=== PATIENT | female | born 1945 | race Caucasian/White ===

== ENCOUNTER 2018-04-16 09:56 | Outpatient (CLI) | payer MEDICARE | END 2018-04-16 09:57 | disposition critical access hospital (66) | LOC: EMS 09:56 | PROVIDERS: ATTEND Surgery | DX: R53.1 Weakness (principal) | CPT/HCPCS: A0425; A0427 ==

== ENCOUNTER 2018-04-16 10:26 | Emergency (ER) | payer MEDICARE ==
[2018-04-16 10:55] LABS: BASOPHILS # (AUTO) 0.1 10^3/uL (0.0-0.1); BASOPHILS % (AUTO) 0.6 %; HGB - HEMOGLOBIN 13.5 g/dL (12.0-16.0); LYMPHOCYTES # (AUTO) 0.3 10^3/uL (1.5-3.5); LYMPHOCYTES % (AUTO) 1.8 %; MEAN CORPUSCULAR HEMOGLOBIN 29.5 pg (27.0-31.0); MEAN CORPUSCULAR HGB CONC 33.4 g/dL (32.0-36.0); MEAN CORPUSCULAR VOLUME 88.2 fL (81.0-99.0); MEAN PLATELET VOLUME 7.3 fL (7.9-10.8); NEUTROPHILS # (AUTO) 18.4 10^3/uL (1.5-6.6); NEUTROPHILS % (AUTO) 92.6 %; PLT - PLATELET COUNT 177 10^3/uL (130-450); RED BLOOD COUNT 4.57 10^6/uL (4.20-5.40); RED CELL DISTRIBUTION WIDTH 13.6 % (12.0-15.0); WHITE BLOOD COUNT 19.9 x10^3/uL (4.8-10.8)
--- NOTE | 2018-04-16 11:01 | ED Physician Documentation ---
PD HPI ALTERED MENTAL STATUS - Stated complaint Stated Complaint: CONFUSED - Chief complaint Chief Complaint: Neuro - History obtained from History obtained from: EMS - History of Present Illness Timing - onset: Today Timing - details: Gradual onset, Still present Quality / character: Less responsive, Confused, Disoriented Associated symptoms: General weakness. No: Fever, Headache, Cough, NVD, Focal weakness Contributing factors: No: Anticoagulated Basline status: Ambulatory, Confused, Disoriented, Nonverbal, Home Similar symptoms before: Work up / diagnostics, Treatment Recently seen: Not recently seen - Additional information Additional information: 72-year-old female with unknown past medical or surgical history as patient is unable to give information or answer questions. Brought in by EMS with a report that the family found her at 930 this morning on the floor. And they also reported that the camera showed at 5:00 in the morning she rolled out of her bed onto the floor. Awaiting family to arrive in the emergency room. 1121 patient's daughter is at the bedside who reported patient has history of Lewy body dementia and hypothyroid. She is baseline currently where she is confused and then nonverbal then would start talking to her. She did not want any CT head scan done because she was able to see through the camera that the patient did not fall. She stated that patient rolled out of bed and stayed on her knees for about 4 hours. Patient had been ambulatory and well yesterday. Review of Systems Unable to obtain: Confused, Dementia Cardiac: denies: Chest pain / pressure GI: denies: Abdominal Pain Musculoskeletal: denies: Neck pain, Back pain, Extremity pain PD PAST MEDICAL HISTORY - Past Medical History Endocrine/Autoimmune: HyPOthyroidism - Present Medications Home Medications: Ambulatory Orders Medication Instructions Recorded Confirmed Donepezil HCl 10 mg PO DAILY 04/16/18 04/16/18 Levothyroxine [Synthroid] 88 mcg PO DAILY 04/16/18 04/16/18 Loratadine [Claritin] 10 mg PO DAILY 04/16/18 04/16/18 Mirtazapine [Remeron] 30 mg PO DAILY 04/16/18 04/16/18 Sertraline [Zoloft] 75 mg PO DAILY 04/16/18 04/16/18 - Allergies Allergies/Adverse Reactions: Allergies Allergy/AdvReac Type Severity Reaction Status Date / Time No Known Drug Allergies Allergy Verified 04/16/18 10:39 - Social History Does the pt smoke?: No Smoking Status: Never smoker Does the pt drink ETOH?: No Does the pt have substance abuse?: No - Immunizations Immunizations are current?: Yes PD ED PE NORMAL - Vitals Vital signs reviewed: Yes - General General: No acute distress, Well developed/nourished, Other (Awake and alert but not answering questions about orientation.When asked about pain she would answer yes or no questions. Patient said no to pain.) - HEENT HEENT: Atraumatic, PERRL, EOMI, Ears normal, Moist mucous membranes, Pharynx benign - Neck Neck: Supple, no meningeal sign, No bony TTP - Cardiac Cardiac: RRR, No murmur - Respiratory Respiratory: No respiratory distress, Clear bilaterally - Abdomen Abdomen: Normal bowel sounds, Soft, Non tender, Non distended - Back Back: No CVA TTP, No spinal TTP - Derm Derm: Normal color, Warm and dry. No: No rash - Extremities Extremities: No deformity, No tenderness to palpate, No edema - Neuro Neuro: Other (Patient has hand grasps bilaterally equal 5/5. Difficult to assess orientation, pronator drift as patient is unable to follow directions. Patient is able to push my hands with her feet and are both bilaterally equal.) Eye Opening: Spontaneous Motor: Obeys Commands Verbal: Confused GCS Score: 14 - Psych Psych: Normal mood, Normal affect Results - Vitals Vitals: Vital Signs - 24 hr 04/16/18 04/16/18 04/16/18 10:32 12:34 13:33 Temperature 36.5 C 36.7 C Heart Rate 89 77 78 Respiratory 16 21 22 Rate Blood Pressure 136/79 H 135/73 H 127/74 O2 Saturation 100 100 93 04/16/18 04/16/18 04/16/18 14:17 16:22 17:13 Temperature Heart Rate 73 57 L 55 L Respiratory 16 16 14 Rate Blood Pressure 127/74 128/72 102/67 O2 Saturation 96 94 97 Oxygen O2 Source Room air - EKG (time done) 1050 Rate: Rate (enter#) (86 ) Rhythm: NSR [place]: Normal Intervals: Normal CO QRS: LVH Ischemia: Non specific changes, Other (Artifacts) Compare to prior EKG: Old EKG unavailable - Labs Labs: Laboratory Tests 04/16/18 04/16/18 04/16/18 10:45 10:45 10:45 WBC 19.9 H RBC 4.57 Hgb 13.5 Hct 40.3 MCV 88.2 MCH 29.5 MCHC 33.4 RDW 13.6 Plt Count 177 MPV 7.3 L Neut # (Auto) 18.4 H Lymph # (Auto) 0.3 L [place] # (Auto) 1.0 Eos # (Auto) 0.0 Baso # (Auto) 0.1 Absolute Nucleated RBC 0.00 Nucleated RBC % 0.0 Sodium 142 Potassium 4.2 Chloride 106 Carbon Dioxide 27 Anion Gap 9.0 BUN 23 H Creatinine 1.0 Estimated GFR (MDRD) 55 L Glucose 201 H Lactic Acid Calcium 9.3 Total Bilirubin 0.6 AST 30 ALT 25 Alkaline Phosphatase 62 Total Creatine Kinase Troponin I 0.26 Total Protein 7.2 Albumin 3.9 Globulin 3.3 Albumin/Globulin Ratio 1.2 Lipase 31 Urine Color Urine Clarity Urine pH Ur Specific [place] Urine Protein Urine Glucose (UA) Urine Ketones Urine Occult Blood Urine Nitrite Urine Bilirubin Urine Urobilinogen Ur Leukocyte Esterase Urine RBC Urine WBC Ur Squamous Epith Cells Urine Bacteria Urine Casts Urine Mucus Ur Microscopic Review Urine Culture Comments 04/16/18 04/16/18 04/16/18 10:55 11:07 13:00 WBC RBC Hgb Hct MCV MCH MCHC RDW Plt Count MPV Neut # (Auto) Lymph # (Auto) [place] # (Auto) Eos # (Auto) Baso # (Auto) Absolute Nucleated RBC Nucleated RBC % Sodium Potassium Chloride Carbon Dioxide Anion Gap BUN Creatinine Estimated GFR (MDRD) Glucose Lactic Acid 3.9 H* Calcium Total Bilirubin AST ALT Alkaline Phosphatase Total Creatine Kinase 241 Troponin I Total Protein Albumin Globulin Albumin/Globulin Ratio Lipase Urine Color YELLOW Urine Clarity SL. CLOUDY Urine pH 6.5 Ur Specific [place] 1.025 Urine Protein 100 H Urine Glucose (UA) NEGATIVE Urine Ketones NEGATIVE Urine Occult Blood NEGATIVE Urine Nitrite POSITIVE H Urine Bilirubin NEGATIVE Urine Urobilinogen 0.2 (NORMAL) Ur Leukocyte Esterase NEGATIVE Urine RBC 0-5 Urine WBC 4-5 Ur Squamous Epith Cells RARE Squamous Urine Bacteria Many H Urine Casts 0-2 Granular Casts Urine Mucus Few Strands Ur Microscopic Review INDICATED Urine Culture Comments INDICATED 04/16/18 13:00 WBC RBC Hgb Hct MCV MCH MCHC RDW Plt Count MPV Neut # (Auto) Lymph # (Auto) [place] # (Auto) Eos # (Auto) Baso # (Auto) Absolute Nucleated RBC Nucleated RBC % Sodium Potassium Chloride Carbon Dioxide Anion Gap BUN Creatinine Estimated GFR (MDRD) Glucose Lactic Acid Calcium Total Bilirubin AST ALT Alkaline Phosphatase Total Creatine Kinase Troponin I 0.63 H* Total Protein Albumin Globulin Albumin/Globulin Ratio Lipase Urine Color Urine Clarity Urine pH Ur Specific [place] Urine Protein Urine Glucose (UA) Urine Ketones Urine Occult Blood Urine Nitrite Urine Bilirubin Urine Urobilinogen Ur Leukocyte Esterase Urine RBC Urine WBC Ur Squamous Epith Cells Urine Bacteria Urine Casts Urine Mucus Ur Microscopic Review Urine Culture Comments PD MEDICAL DECISION MAKING - ED course Complexity details: reviewed results, re-evaluated patient, considered differential (UTI, sepsis, fracture, CVA, Dehydration, ACS), d/w patient, d/w family, d/w PMD ED course: 1212 family updated on test results. And agreed to admission. [address] Lay the hospitalist was going to admit the patient as an inpatient. He requested to have the troponin repeated. 1343 lab called the troponin is now 0.63 it was 0.26 2 hours ago. Patient, daughter and hospitalist inform about this. Daughter at the bedside stated that they have never really talk about her resuscitative status. So she wants everything done. She is undecided about any heart procedure. She stepped out to think about things. Hospitalist Nurse practitioner Seven was also inform about this. 1419 patient's daughter is back in the room and inform her that because heart enzyme was increasing she will need a higher level of care and she stated that she wants everything done including an angiogram and a stent. She agreed to transfer.[id number] patient has [facility] Dr. Bayron Brown return my phone call regarding the transfer. Case discussed in detail. He stated he will call me back regarding transfer to their facility. 1459 Dr. Brown called back and stated there is no bed available at their facility and so it is okay to call [facility] for transfer Or another place that is available. LEAD BASED PAINT TECHNICIAN inform me that there is no room available at [facility]. [address] [facility] Case discussed in detail Including family's desire to do everything for the patient. He stated anticoagulation is not needed right now as most likely elevated troponin is stress from patient's sepsis. Rocephin at this time is appropriate. But they will follow-up on patient's troponin and will be observed overnight. They will do a stress test tomorrow to see if she will need any angiogram. 1535 patient's daughter inform about transfer and plan of treatment at [place].1735 ambulance here to transport the patient. Daughter at the bedside we will follow the patient to [place].Daughter stated that patient is in her baseline of mental status. Departure - Departure Disposition: 02 Transfer Acute Care Hosp Clinical Impression: NSTEMI (non-ST elevated myocardial infarction) Sepsis Qualifiers: Sepsis type: sepsis due to unspecified organism Qualified Code(s): A41.9 - Sepsis, unspecified organism UTI (urinary tract infection) Qualifiers: Urinary tract infection type: acute cystitis Hematuria presence: without hematuria Qualified Code(s): N30.00 - Acute cystitis without hematuria Dementia Qualifiers: Dementia type: Lewy body dementia
[2018-04-16 11:10] LABS: ALBUMIN 3.9 g/dL (3.2-5.5); ALBUMIN/GLOBULIN RATIO 1.2 (1.0-2.2); BILIRUBIN,TOTAL 0.6 mg/dL (0.2-1.0); CALCIUM 9.3 mg/dL (8.5-10.3); TOTAL PROTEIN 7.2 g/dL (6.7-8.2)
[2018-04-16 11:17] LABS: BILIRUBIN,URINE NEGATIVE (NEGATIVE); GLUCOSE, URINE (UA) NEGATIVE (NEGATIVE); KETONES,URINE (UA) NEGATIVE (NEGATIVE); LEUKOCYTE ESTERASE, URINE NEGATIVE (NEGATIVE); NITRITE,URINE POSITIVE (NEGATIVE); OCCULT BLOOD,URINE NEGATIVE (NEGATIVE); PH,URINE 6.5 PH (5.0-7.5); PROTEIN,URINE 100 mg/dL (NEGATIVE); UROBILINOGEN,URINE 0.2 (NORMAL) E.U./dL (NORMAL)
[2018-04-16] MEDS ORDERED: SODIUM CHLORIDE 0.9% 1,000 ML IV ONE ×2 (11:20→13:07)
[2018-04-16 11:21] LABS: CLARITY,URINE SL. CLOUDY (CLEAR)
[2018-04-16 11:26] LABS: BACTERIA,URINE Many /HPF (None Seen); MUCUS,URINE Few Strands; RBC,URINE 0-5 /HPF (0-5); SQUAMOUS EPITHELIAL CELL,UR RARE Squamous (<= Few)
[2018-04-16] MEDS ORDERED: cefTRIAXone 1 GM in SODIUM CHLORIDE 0.9% MINIBAG 100 ML IV STA (12:31)
--- NOTE | 2018-04-16 14:22 | XRAY Report ---
Reason: chest pain Procedure Date: 04/16/2018 Accession Number: [id number] / [id number] Procedure: XR - Chest 1 View X-Ray CPT Code: 37341 FULL RESULT: EXAM: CHEST RADIOGRAPHY EXAM DATE: 04/16/2018 02:07 PM. CLINICAL HISTORY: Chest pain. COMPARISON: None available. TECHNIQUE: 1 view. FINDINGS: Lungs/Pleura: No focal opacities evident. No pleural effusion. No pneumothorax. Mediastinum: Within exam limitations, the cardiomediastinal contour is normal. There is atherosclerotic calcification noted in the aortic arch. Other: None. IMPRESSION: Grossly clear lungs. RADIA
--- NOTE | 2018-04-16 14:24 | XRAY Report ---
Reason: fall? Procedure Date: 04/16/2018 Accession Number: [id number] / [id number] Procedure: XR - Pelvis 1 View CPT Code: FULL RESULT: EXAM: PELVIS RADIOGRAPHY EXAM DATE: 04/16/2018 02:07 PM. CLINICAL HISTORY: Fall?. COMPARISON: None available. TECHNIQUE: 1 view. FINDINGS: Bones: The bones appear intact without evidence of a fracture. Joints: Normal joint alignment. There are small bilateral hip osteophytes. There is lower lumbar spine facet hypertrophy. Soft Tissues: Normal. No soft tissue swelling. IMPRESSION: No acute plain radiographic abnormality. RADIA
[2018-04-16 17:14] VITALS: BP 102/67
== END 2018-04-16 17:42 | disposition short-term general hospital (02) ==
LOC: EDUNIT# → ED 10:26
DX: I21.4 Non-ST elevation (NSTEMI) myocardial infarction (principal); A41.9 Sepsis, unspecified organism; N30.00 Acute cystitis without hematuria; G31.83 Neurocognitive disorder with Lewy bodies; F02.80 Dementia in other diseases classified elsewhere, unspecified severity, without behavioral disturbance, psychotic disturbance, mood disturbance, and anxiety; E03.9 Hypothyroidism, unspecified
CPT/HCPCS: 36415; 51701; 71045; 72170; 80053; 81001; 81003; 82550; 83605; 83690; 84484; 85025; 87040; 87077; 87086; 87181; 93005; 96361; 96365; 99284; 99285

== ENCOUNTER 2018-05-12 12:00 | Outpatient (CLI) | payer MEDICARE | END 2018-05-12 12:01 | disposition home or self-care (01) | LOC: EMS 12:00 | PROVIDERS: ATTEND Surgery | DX: I46.9 Cardiac arrest, cause unspecified (principal) | CPT/HCPCS: A0425; A0433 ==

== ENCOUNTER 2018-05-12 12:24 | Emergency (ER) | payer MEDICARE ==
[2018-05-12] MEDS ORDERED: IOVERSOL 320 100 ML VIAL IVP ONE ×3 (12:25→15:43)
--- NOTE | 2018-05-12 12:34 | ED Physician Documentation ---
PD HPI CPR - Stated complaint Stated Complaint: UNRESPONSIVE - History obtained from History obtained from: EMS - History of Present Illness Timing - onset: Today (This is a 72-year-old woman who per the chart has Lewy body dementia. On ' [place] a few weeks ago it looks like she had UTI and urosepsis with troponin leak and was sent to [place]. At that time the notes state that she was full code because they never talked about resuscitation with the family. Today, I guess she chokes a lot. She was choking and then arrested. She was asystolic for paramedics, but responded to epinephrine and CPR. She rested again on route and again responded to epinephrine and CPR. She was intubated. They estimate the total pulseless time is 10 minutes. On arrival the patient is intubated. No family is initially with her) Review of Systems Unable to obtain: Intubated PD PAST MEDICAL HISTORY - Past Medical History Neuro: Dementia Endocrine/Autoimmune: HyPOthyroidism - Past Surgical History Ortho: Knee replacement - Present Medications Home Medications: Ambulatory Orders Medication Instructions Recorded Confirmed Donepezil HCl 10 mg PO DAILY 04/16/18 04/16/18 Levothyroxine [Synthroid] 88 mcg PO DAILY 04/16/18 04/16/18 Loratadine [Claritin] 10 mg PO DAILY 04/16/18 04/16/18 Mirtazapine [Remeron] 30 mg PO DAILY 04/16/18 04/16/18 Sertraline [Zoloft] 75 mg PO DAILY 04/16/18 04/16/18 - Allergies Allergies/Adverse Reactions: Allergies Allergy/AdvReac Type Severity Reaction Status Date / Time No Known Drug Allergies Allergy Verified 04/16/18 10:39 - Social History Does the pt smoke?: No Smoking Status: Never smoker Does the pt drink ETOH?: No Does the pt have substance abuse?: No - Immunizations Immunizations are current?: Yes PD ED PE NORMAL - Vitals Vital signs reviewed: Yes - General General: Other (She is intubated with a 7.5 cm tube. Bilateral breath sounds. Pupils are pinpoint.) - Cardiac Cardiac: Other (Frequent extrasystoles) - Respiratory Respiratory: No respiratory distress, Clear bilaterally - Abdomen Abdomen: Non tender - Derm Derm: Normal color, Warm and dry - Extremities Extremities: No edema, No calf tenderness / cord - Neuro Eye Opening: None Motor: None Verbal: None GCS Score: 3 Results - Vitals Vitals: Vital Signs - 24 hr 05/12/18 05/12/18 05/12/18 12:20 12:25 12:38 Temperature 36.3 C L 36.0 C L Heart Rate 74 68 69 Respiratory 18 12 Rate Blood Pressure 127/77 127/77 O2 Saturation 95 94 05/12/18 05/12/18 05/12/18 12:49 13:03 13:04 Temperature 35.5 C L 35.5 C L 35.5 C L Heart Rate 66 68 68 Respiratory 16 12 16 Rate Blood Pressure 109/66 109/66 109/66 O2 Saturation 95 96 96 05/12/18 05/12/18 05/12/18 13:13 13:15 14:00 Temperature 35.2 C L 34.9 C L Heart Rate 69 62 68 Respiratory 16 22 Rate Blood Pressure 106/66 98/64 O2 Saturation 96 99 05/12/18 05/12/18 05/12/18 14:14 14:30 14:45 Temperature 36.5 C 34.3 C L 34.2 C L Heart Rate 73 69 68 Respiratory 16 18 17 Rate Blood Pressure 96/62 101/89 H 110/62 O2 Saturation 97 100 100 05/12/18 05/12/18 05/12/18 15:14 15:15 15:21 Temperature 34.3 C L 34.3 C L 34.3 C L Heart Rate 68 67 69 Respiratory 18 19 18 Rate Blood Pressure 80/54 L 85/56 L 84/50 L O2 Saturation 100 100 100 05/12/18 05/12/18 05/12/18 15:30 15:40 15:45 Temperature 34.3 C L 34.3 C L 34.3 C L Heart Rate 69 70 74 Respiratory 17 15 16 Rate Blood Pressure 81/55 L 90/62 110/67 O2 Saturation 100 100 100 05/12/18 05/12/18 05/12/18 15:58 16:00 16:15 Temperature 34.3 C L 34.3 C L 34.4 C L Heart Rate 71 90 72 Respiratory 14 17 18 Rate Blood Pressure 98/59 L 91/60 103/69 O2 Saturation 99 100 99 05/12/18 05/12/18 05/12/18 16:30 16:31 16:45 Temperature 34.4 C L 34.4 C L Heart Rate 70 71 68 Respiratory 15 15 Rate Blood Pressure 104/67 111/68 O2 Saturation 98 98 05/12/18 16:54 Temperature 34.4 C L Heart Rate 70 Respiratory 17 Rate Blood Pressure 104/59 L O2 Saturation 99 Oxygen O2 Source Mechanical ventilator - EKG (time done) 1247 Rate: Rate (enter#) (69) Rhythm: NSR [place]: Normal Intervals: RBBB Ischemia: Non specific changes (Mild lat STD and inferior TWI) Computer interpretation: Agree with computer - Labs Labs: Laboratory Tests 05/12/18 05/12/18 05/12/18 12:30 12:30 12:30 WBC 13.0 H RBC 4.10 L Hgb 12.3 Hct 39.0 MCV 95.2 MCH 30.1 MCHC 31.6 L RDW 14.2 Plt Count 133 MPV 8.3 Neut # (Auto) 9.2 H Lymph # (Auto) 2.8 [place] # (Auto) 0.7 Eos # (Auto) 0.1 Baso # (Auto) 0.2 H Absolute Nucleated RBC 0.02 Nucleated RBC % 0.2 Manual Slide Review Indicated Platelet Estimate NORMAL (130-450,000) Platelet Morphology NORMAL APPEARANCE RBC Morph Micro Appear NORMAL APPEARANCE PT 20.1 H INR 1.8 H APTT 47.7 H Bld Gas Analysis Time Sample Site ABG pH ABG pCO2 ABG pO2 ABG HCO3 ABG Total CO2 ABG Base Excess Juan Test Respiration Rate O2 Delivery Device Vent Mode FiO2 Tidal Volume PEEP Pressure Support Vent Sodium 144 Potassium 3.5 Chloride 108 Carbon Dioxide 18 L Anion Gap 18.0 H BUN 23 H Creatinine 1.0 Estimated GFR (MDRD) 55 L Glucose 338 H Lactic Acid Calcium 8.0 L Magnesium 2.3 Total Bilirubin 0.5 AST 49 H ALT < 10 L Alkaline Phosphatase 57 Total Creatine Kinase 63 CK-MB (CK-2) Troponin I B-Natriuretic Peptide Total Protein 5.8 L Albumin 2.9 L Globulin 2.9 Albumin/Globulin Ratio 1.0 Lipase 39 Urine Color Urine Clarity Urine pH Ur Specific [place] Urine Protein Urine Glucose (UA) Urine Ketones Urine Occult Blood Urine Nitrite Urine Bilirubin Urine Urobilinogen Ur Leukocyte Esterase Urine RBC Urine WBC Ur Squamous Epith Cells Urine Bacteria Ur Microscopic Review Urine Culture Comments Urine Opiates Screen Ur Oxycodone Screen Urine Methadone Screen Ur Propoxyphene Screen Ur Barbiturates Screen Ur Tricyclics Screen Ur Phencyclidine Scrn Ur Amphetamine Screen U Methamphetamines Scrn U Benzodiazepines Scrn Urine Cocaine Screen U Cannabinoids Screen Ethyl Alcohol < 5.0 05/12/18 05/12/18 05/12/18 12:30 12:30 12:30 WBC RBC Hgb Hct MCV MCH MCHC RDW Plt Count MPV Neut # (Auto) Lymph # (Auto) [place] # (Auto) Eos # (Auto) Baso # (Auto) Absolute Nucleated RBC Nucleated RBC % Manual Slide Review Platelet Estimate Platelet Morphology RBC Morph Micro Appear PT INR APTT Bld Gas Analysis Time Sample Site ABG pH ABG pCO2 ABG pO2 ABG HCO3 ABG Total CO2 ABG Base Excess Juan Test Respiration Rate O2 Delivery Device Vent Mode FiO2 Tidal Volume PEEP Pressure Support Vent Sodium Potassium Chloride Carbon Dioxide Anion Gap BUN Creatinine Estimated GFR (MDRD) Glucose Lactic Acid > 10.0 H* Calcium Magnesium Total Bilirubin AST ALT Alkaline Phosphatase Total Creatine Kinase CK-MB (CK-2) 6.0 Troponin I 0.10 B-Natriuretic Peptide 123 H Total Protein Albumin Globulin Albumin/Globulin Ratio Lipase Urine Color Urine Clarity Urine pH Ur Specific [place] Urine Protein Urine Glucose (UA) Urine Ketones Urine Occult Blood Urine Nitrite Urine Bilirubin Urine Urobilinogen Ur Leukocyte Esterase Urine RBC Urine WBC Ur Squamous Epith Cells Urine Bacteria Ur Microscopic Review Urine Culture Comments Urine Opiates Screen Ur Oxycodone Screen Urine Methadone Screen Ur Propoxyphene Screen Ur Barbiturates Screen Ur Tricyclics Screen Ur Phencyclidine Scrn Ur Amphetamine Screen U Methamphetamines Scrn U Benzodiazepines Scrn Urine Cocaine Screen U Cannabinoids Screen Ethyl Alcohol 05/12/18 05/12/18 05/12/18 12:50 13:00 14:20 WBC RBC Hgb Hct MCV MCH MCHC RDW Plt Count MPV Neut # (Auto) Lymph # (Auto) [place] # (Auto) Eos # (Auto) Baso # (Auto) Absolute Nucleated RBC Nucleated RBC % Manual Slide Review Platelet Estimate Platelet Morphology RBC Morph Micro Appear PT INR APTT Bld Gas Analysis Time 1250 1427 Sample Site LEFT BRACHIAL UNKNOWN ABG pH 7.01 L* 7.10 L* ABG pCO2 63 H* 71 H* ABG pO2 108 H 27 L* ABG HCO3 15.4 L 21.4 L ABG Total CO2 17.3 L 23.6 ABG Base Excess -16.6 L -9.7 L Juan Test NOT APPLICABLE POSITIVE Respiration Rate 16 12 O2 Delivery Device VENTILATOR VENTILATOR Vent Mode SIMV ACCESSED/CONTROL FiO2 70.00 70.00 Tidal Volume 450 550 PEEP 5 5 Pressure Support Vent 10 Sodium Potassium Chloride Carbon Dioxide Anion Gap BUN Creatinine Estimated GFR (MDRD) Glucose Lactic Acid Calcium Magnesium Total Bilirubin AST ALT Alkaline Phosphatase Total Creatine Kinase CK-MB (CK-2) Troponin I B-Natriuretic Peptide Total Protein Albumin Globulin Albumin/Globulin Ratio Lipase Urine Color YELLOW Urine Clarity SL. CLOUDY Urine pH 6.5 Ur Specific [place] >=1.030 H Urine Protein >=300 H Urine Glucose (UA) 500 H Urine Ketones NEGATIVE Urine Occult Blood LARGE H Urine Nitrite NEGATIVE Urine Bilirubin NEGATIVE Urine Urobilinogen 0.2 (NORMAL) Ur Leukocyte Esterase NEGATIVE Urine RBC 11-25 H Urine WBC >25 H Ur Squamous Epith Cells FEW Squamous Urine Bacteria Moderate H Ur Microscopic Review INDICATED Urine Culture Comments INDICATED Urine Opiates Screen NEGATIVE Ur Oxycodone Screen NEGATIVE Urine Methadone Screen NEGATIVE Ur Propoxyphene Screen NEGATIVE Ur Barbiturates Screen NEGATIVE Ur Tricyclics Screen NEGATIVE Ur Phencyclidine Scrn NEGATIVE Ur Amphetamine Screen NEGATIVE U Methamphetamines Scrn NEGATIVE U Benzodiazepines Scrn NEGATIVE Urine Cocaine Screen NEGATIVE U Cannabinoids Screen NEGATIVE Ethyl Alcohol 05/12/18 15:03 WBC RBC Hgb Hct MCV MCH MCHC RDW Plt Count MPV Neut # (Auto) Lymph # (Auto) [place] # (Auto) Eos # (Auto) Baso # (Auto) Absolute Nucleated RBC Nucleated RBC % Manual Slide Review Platelet Estimate Platelet Morphology RBC Morph Micro Appear PT INR APTT Bld Gas Analysis Time Sample Site ABG pH ABG pCO2 ABG pO2 ABG HCO3 ABG Total CO2 ABG Base Excess Juan Test Respiration Rate O2 Delivery Device Vent Mode FiO2 Tidal Volume PEEP Pressure Support Vent Sodium Potassium Chloride Carbon Dioxide Anion Gap BUN Creatinine Estimated GFR (MDRD) Glucose Lactic Acid Calcium Magnesium Total Bilirubin AST ALT Alkaline Phosphatase Total Creatine Kinase CK-MB (CK-2) Troponin I 0.62 H* B-Natriuretic Peptide Total Protein Albumin Globulin Albumin/Globulin Ratio Lipase Urine Color Urine Clarity Urine pH Ur Specific [place] Urine Protein Urine Glucose (UA) Urine Ketones Urine Occult Blood Urine Nitrite Urine Bilirubin Urine Urobilinogen Ur Leukocyte Esterase Urine RBC Urine WBC Ur Squamous Epith Cells Urine Bacteria Ur Microscopic Review Urine Culture Comments Urine Opiates Screen Ur Oxycodone Screen Urine Methadone Screen Ur Propoxyphene Screen Ur Barbiturates Screen Ur Tricyclics Screen Ur Phencyclidine Scrn Ur Amphetamine Screen U Methamphetamines Scrn U Benzodiazepines Scrn Urine Cocaine Screen U Cannabinoids Screen Ethyl Alcohol - Rads (name of study) 1v chest Radiology: EMP read contemporaneously (OGT in esophagous and advanced p this) CT Head Radiology: EMP read contemporaneously (NAD) CT PA Radiology: EMP read contemporaneously (1. Positive for pulmonary emboli bilaterally, occlusive in the basilar right lower lobe. There is evidence of right heart strain. 2. Nodular densities in the left upper lobe are most likely related to aspiration or edema rather than pulmonary infarct. 3. Multiple anterior rib fractures. 4. Small amount of pneumomediastinum may be related to barotrauma or resuscitation. No pneumothorax.) PD MEDICAL DECISION MAKING - ED course ED course: This is a 72-year-old woman who presents after witnessed cardiac arrest at home found due to a PE, potentially combined with a non-STEMI. Patient and family reportedly wanted full code. She was cooled. Heparin was started at high dose. She had problems with bleeding about the mouth and this was treated with oral TXA. I did not really have a whole lot of other options for that. Limited oral examination did not demonstrate any significant abnormalities. They have Luz and she was accepted by Dr. Dawn Moon to the ICU at [facility] for further evaluation and treatment. She had problems with borderline hypotension in the department, but never with a map below 75 or so so pressors were not necessary. She was treated with IV fluids and was close to goal temperature by the time of transport. On and off she had some grimacing with painful stimulus which was good, but she also had some shaking episodes which could have been either Rigor's or seizures and she was loaded with Keppra after Ativan had no effect on that. Departure - Departure Disposition: 02 Transfer Acute Care Hosp Clinical Impression: Cardiac arrest Myocardial infarction Qualifiers: Myocardial infarction type: non-ST elevation myocardial infarction Qualified Code(s): I21.4 - Non-ST elevation (NSTEMI) myocardial infarction Pulmonary embolism Qualifiers: Pulmonary embolism type: other Chronicity: acute Acute cor pulmonale presence: with acute cor pulmonale Qualified Code(s): I26.09 - Other pulmonary embolism with acute cor pulmonale Condition: Critical
[2018-05-12 12:46] LABS: INR 1.8 (0.8-1.2); PT - PROTHROMBIN TIME 20.1 secs (9.9-12.6)
[2018-05-12 12:47] LABS: BASOPHILS # (AUTO) 0.2 10^3/uL (0.0-0.1); BASOPHILS % (AUTO) 1.2 %; EOSINOPHILS # (AUTO) 0.1 10^3/uL (0.0-0.7); EOSINOPHILS % (AUTO) 1.1 %; HGB - HEMOGLOBIN 12.3 g/dL (12.0-16.0); LYMPHOCYTES # (AUTO) 2.8 10^3/uL (1.5-3.5); LYMPHOCYTES % (AUTO) 21.9 %; MEAN CORPUSCULAR HEMOGLOBIN 30.1 pg (27.0-31.0); MEAN CORPUSCULAR HGB CONC 31.6 g/dL (32.0-36.0); MEAN CORPUSCULAR VOLUME 95.2 fL (81.0-99.0); MEAN PLATELET VOLUME 8.3 fL (7.9-10.8); MONOCYTES # (AUTO) 0.7 10^3/uL (0.0-1.0); MONOCYTES % (AUTO) 5.1 %; NEUTROPHILS # (AUTO) 9.2 10^3/uL (1.5-6.6); NEUTROPHILS % (AUTO) 70.7 %; PLT - PLATELET COUNT 133 10^3/uL (130-450); RED CELL DISTRIBUTION WIDTH 14.2 % (12.0-15.0)
[2018-05-12] MEDS ORDERED: LACTATED RINGERS 1,000 ML IV STA ×2 (12:56→15:46)
[2018-05-12 12:58] LABS: TROPONIN I 0.1 ng/mL (<0.49)
[2018-05-12 13:04] LABS: ABG BASE EXCESS -16.6 mmol/L (-2.0-3.0); ABG HCO3 15.4 mmol/L (22.0-26.0); ABG PO2 108 mmHg (80-100); ABG TCO2 17.3 MMOL/L (21.0-29.0)
[2018-05-12 13:06] LABS: MUDS CUTOFF CONCENTRATIONS CUTOFF CONC BELOW:
[2018-05-12 13:06] LABS: ABG PCO2 63 mmHg (34-45); ABG PH 7.01 (7.35-7.45)
[2018-05-12 13:09] LABS: BILIRUBIN,URINE NEGATIVE (NEGATIVE); CLARITY,URINE SL. CLOUDY (CLEAR); GLUCOSE, URINE (UA) 500 mg/dL (NEGATIVE); KETONES,URINE (UA) NEGATIVE (NEGATIVE); LEUKOCYTE ESTERASE, URINE NEGATIVE (NEGATIVE); NITRITE,URINE NEGATIVE (NEGATIVE); OCCULT BLOOD,URINE LARGE (NEGATIVE); PH,URINE 6.5 PH (5.0-7.5); PROTEIN,URINE >=300 mg/dL (NEGATIVE); UROBILINOGEN,URINE 0.2 (NORMAL) E.U./dL (NORMAL)
[2018-05-12 13:15] LABS: PLATELET ESTIMATE, MANUAL NORMAL (130-450,000) (NORMAL); PLATELET MORPHOLOGY NORMAL APPEARANCE (NORMAL); RBC MORPHOLOGY (MULTIPLE) NORMAL APPEARANCE (NORMAL)
[2018-05-12 13:18] LABS: COCAINE SCREEN URINE NEGATIVE (NEGATIVE); METHAMPHETAMINES SCREEN, URINE NEGATIVE (NEGATIVE); OPIATE SCREEN, URINE NEGATIVE (NEGATIVE)
[2018-05-12 13:19] LABS: AMPHETAMINE SCREEN,URINE NEGATIVE (NEGATIVE); BENZODIAZEPINES SCREEN, URINE NEGATIVE (NEGATIVE); METHADONE SCREEN, URINE NEGATIVE (NEGATIVE); OXYCODONE SCREEN, URINE NEGATIVE (NEGATIVE); PROPOXYPHENE SCREEN, URINE NEGATIVE (NEGATIVE); TRICYCLIC ANTIDEPRESSANT,URINE NEGATIVE (NEGATIVE)
[2018-05-12 13:20] LABS: BACTERIA,URINE Moderate /HPF (None Seen); SQUAMOUS EPITHELIAL CELL,UR FEW Squamous (<= Few)
--- NOTE | 2018-05-12 13:20 | XRAY Report ---
Reason: post arrest, intubated Procedure Date: 05/12/2018 Accession Number: [id number] / [id number] Procedure: XR - Chest 1 View X-Ray CPT Code: 62223 FULL RESULT: EXAM: CHEST RADIOGRAPHY EXAM DATE: 05/12/2018 12:40 PM. CLINICAL HISTORY: Post arrest, intubated. COMPARISON: CHEST 1 VIEW 04/16/2018 1:53 PM. TECHNIQUE: 1 view. FINDINGS: There is a new endotracheal tube with the tip at the level of the clavicles. There is an enteric tube with the tip overlying the distal esophagus. There is mild cardiomegaly. Perihilar infiltrates are noted bilaterally. There is no pleural effusion or pneumothorax seen degenerative changes of the thoracic spine are noted. Postoperative changes of the neck are noted. IMPRESSION: Mild perihilar infiltrates and mild cardiomegaly consistent with CHF. New endotracheal and enteric tubes. Endotracheal tube tip overlying the esophagus. Recommend advancement. Findings discussed with Dr. Fuller at 1:18 PM on 05/12/2018. [facility]
[2018-05-12] MEDS ORDERED: CEFEPIME 2 GM in SODIUM CHLORIDE 0.9% MINIBAG 100 ML IV STA (13:21)
[2018-05-12 13:24] LABS: ALBUMIN 2.9 g/dL (3.2-5.5); ALKALINE PHOSPHATASE 57 IU/L (42-121); AST ASPARTATE AMINOTRANSFERASE 49 IU/L (10-42); BILIRUBIN,TOTAL 0.5 mg/dL (0.2-1.0); BUN - BLOOD UREA NITROGEN 23 mg/dL (6-20); CARBON DIOXIDE - CO2 18 mmol/L (21-32); CHLORIDE 108 mmol/L (101-111); CK- CREATINE KINASE 63 IU/L (22-269); GFR - MDRD 55 (>89); GLUCOSE 338 mg/dL (70-100); LIPASE 39 U/L (22-51); MAGNESIUM 2.3 mg/dL (1.7-2.8); SODIUM 144 mmol/L (135-145); TOTAL PROTEIN 5.8 g/dL (6.7-8.2)
[2018-05-12 13:31] LABS: ALT ALANINE AMINOTRANSFERASE < 10 IU/L (10-60)
[2018-05-12] MEDS ORDERED: HEPARIN 25000UNITS/500ML (D5W) 25,000 UNIT/500 ML BAG IV STA (14:00)
[2018-05-12] MEDS ORDERED: fentaNYL 100 MCG/2 ML VIAL IVP STA (14:06)
[2018-05-12] MEDS ORDERED: fentaNYL 100 MCG/2 ML VIAL ONE (14:16)
[2018-05-12] MEDS ORDERED: PROPOFOL 1000 MG/100 ML 100 ML IV STA (14:30)
--- NOTE | 2018-05-12 14:43 | CT Report ---
Reason: post arrest, htn Procedure Date: 05/12/2018 Accession Number: [id number] / [id number] Procedure: CT - Head W/O CPT Code: FULL RESULT: EXAM: CT HEAD EXAM DATE: 05/12/2018 01:55 PM. CLINICAL HISTORY: Post arrest, htn. COMPARISON: None. TECHNIQUE: Multiaxial CT images were obtained from the foramen magnum to the vertex. Reformats: Sagittal and coronal. IV contrast: None. In accordance with CT protocol optimization, one or more of the following dose reduction techniques were utilized for this exam: automated exposure control, adjustment of mA and/or KV based on patient size, or use of iterative reconstructive technique. FINDINGS: Parenchyma: No intraparenchymal hemorrhage. No evidence of mass, midline shift, or CT findings of infarction. Lauren-white differentiation is distinct. Mild periventricular white matter disease. Extraaxial Spaces: Normal for age. No subdural or epidural collections identified. Ventricles: Normal in size and position. Sinuses and Orbits: Imaged paranasal sinuses, orbits, and mastoids show no significant abnormality. Bones: No evidence of fracture or calvarial defect. Other: None. IMPRESSION: No acute intracranial abnormality. [facility]
[2018-05-12] MEDS ORDERED: LORazepam 2 MG/ML VIAL IVP STA (14:57)
--- NOTE | 2018-05-12 14:58 | CT Report ---
Reason: arrest, recently hospitalized Procedure Date: 05/12/2018 Accession Number: [id number] / [id number] Procedure: CT - Chest Angio (PE) CPT Code: FULL RESULT: EXAM: CT ANGIOGRAM CHEST EXAM DATE: 05/12/2018 01:55 PM. CLINICAL HISTORY: Arrest, recently hospitalized. COMPARISON: 05/12/2018. TECHNIQUE: Routine helical imaging was performed through the chest in the pulmonary arterial phase. IV Contrast: 80 mL [id number]. Reconstructions: Coronal 3-D MIP reconstructions.Sagittal and coronal. In accordance with CT protocol optimization, one or more of the following dose reduction techniques were utilized for this exam: automated exposure control, adjustment of mA and/or KV based on patient size, or use of iterative reconstructive technique. FINDINGS: Pulmonary Arteries: Diagnostic quality: Suboptimal due to motion artifact. There is occlusive thrombus in the right lower lobe basilar segmental and subsegmental arteries. Nonocclusive thrombus present in the right middle and upper lobe segmental arteries as well as in the posterior left upper lobe. Abnormal RV/LV ratio, greater than 1. There is flattening of the interventricular septum. There is reflux of contrast into the IVC and hepatic veins. Lungs/Pleura: Endotracheal tube in position above the sami. Multifocal nodular densities present in the left upper lobe with mild groundglass. Subpleural cystic change is present, greatest in the lower lobes. There are a few parenchymal cysts as well. No pleural effusion or pneumothorax. Mediastinum: Normal heart size. There is a small amount of pneumomediastinum inferiorly. No lymphadenopathy. Thoracic Aorta: No aneurysm or dissection. Upper Abdomen: Unremarkable. Other: Bilateral anterior fractures involving right third through seventh ribs and left second through seventh ribs. IMPRESSION: 1. Positive for pulmonary emboli bilaterally, occlusive in the basilar right lower lobe. There is evidence of right heart strain. 2. Nodular densities in the left upper lobe are most likely related to aspiration or edema rather than pulmonary infarct. 3. Multiple anterior rib fractures. 4. Small amount of pneumomediastinum may be related to barotrauma or resuscitation. No pneumothorax. [facility] The call report notification system was initiated by Dr. Christiano Thayer at 02:46 PM hrs on 05/12/2018. Enteric tube terminates in the stomach. The above findings were discussed with Jai Fuller by Dr. Christiano Thayer at 02:56 PM hrs on 05/12/2018.
[2018-05-12 15:11] LABS: ABG BASE EXCESS -9.7 mmol/L (-2.0-3.0); ABG HCO3 21.4 mmol/L (22.0-26.0); ABG TCO2 23.6 MMOL/L (21.0-29.0)
[2018-05-12 15:12] LABS: ALLEN TEST POSITIVE
[2018-05-12 15:18] LABS: ABG PO2 27 mmHg (80-100)
[2018-05-12] MEDS ORDERED: TRANEXAMIC ACID 1,000 MG in SODIUM CHLORIDE 0.9% 100ML 100 ML NAS STA (16:18)
[2018-05-12] MEDS ORDERED: TRANEXAMIC ACID 1,000 MG/10 ML VIAL NAS STA (16:30)
[2018-05-12] MEDS ORDERED: levETIRAcetam INJ 1,000 MG in SODIUM CHLORIDE 0.9% 100ML 100 ML IV STA (16:58)
[2018-05-12 17:32] VITALS: BP 118/65
[2018-05-12 23:10] LABS: ABG PCO2 71 mmHg (34-45)
== END 2018-05-12 17:50 | disposition short-term general hospital (02) ==
LOC: EDUNIT# → EDBD → ED 12:24
DX: I46.9 Cardiac arrest, cause unspecified (principal); I21.4 Non-ST elevation (NSTEMI) myocardial infarction; I26.09 Other pulmonary embolism with acute cor pulmonale; I45.10 Unspecified right bundle-branch block; G31.83 Neurocognitive disorder with Lewy bodies; F02.80 Dementia in other diseases classified elsewhere, unspecified severity, without behavioral disturbance, psychotic disturbance, mood disturbance, and anxiety
CPT/HCPCS: 31500; 36415; 36600; 51702; 70450; 71045; 71275; 80053; 81001; 82550; 82553; 82803; 83605; 83690; 83735; 83880; 84484; 85025; 85610; 85730; 87040; 87086; 93005; 94770; 96361; 96365; 96367; 96375; 99291; J2060; J7120; Q9967; 80306; 80320; 81003; 99285